=== PATIENT | female | born 1950 | race Caucasian/White ===

== ENCOUNTER → 2017-07-14 | Outpatient (CLI) | payer MEDICARE ==
[2014-11-29 15:27] VITALS: BP 163/75
[~2017-07-14] MED LIST: FAMO-63 PO; FERR-36 PO; IOHEXOL 240 MG/ML 50ML VIAL. PO ONE; IOHEXOL 300 MG/ML 75 ML VIAL IV ONE; METO25TA4 PO; MULT1TAB52 PO; OMEP20CA5 PO; ONDA4TAB7 PO; OXYC-323 PO; PHEN-318 PO; POTA10TA12 PO; TAMS0.4C97 PO; VITA200C PO
[2017-07-14 08:28] LABS: CREATININE 0.8 mg/dL (0.6-1.0); GFR 71.3
--- NOTE | 2017-07-14 10:21 | RAD ---
CT chest and abdomen with contrast 07/14/2017 at 0921 hours Indication: Liver and lung metastasis. History of colon cancer. Comparison: CT chest and abdomen 03/14/2017 Technique: Multiple axial CT images of the chest and abdomen were obtained after the administration of 75 mL Omnipaque 300. Coronal and sagittal reformats are provided. Findings: Chest: Thyroid gland is normal in appearance. Right chest wall infusion port catheter is identified with the distal tip terminating at the cavoatrial junction. Heart size is within normal limits. Thoracic aorta is normal in course and caliber. Scattered atherosclerotic desiccation is present. There is no pericardial or pleural effusion. There is biapical pleural-parenchymal scarring, left greater than right. There is geographic groundglass attenuation in the left upper lobe. Previously seen 11 mm solid noncalcified pulmonary nodule in the left upper lobe is obscured in the region of groundglass attenuation, however appears to measure approximately 7 mm on the current examination (series 3, image 13). Similar appearance of bandlike atelectasis and/or scarring in the anterior left upper lobe (in the region of nodular mass seen on the recent PET). Previously seen area of airspace consolidation in the left lower lobe with air bronchograms measured 4.8 x 3.9 cm. This area currently measures 3.7 x 2.1 cm. However, there is an adjacent noncalcified nodular density measuring 15 x 18 mm (series 3, image 30) as well as a 7 mm noncalcified pulmonary nodule (series 3, image 31), which are new from prior examination. Right lung is clear. Abdomen: Post surgical changes from right hepatectomy are identified. No suspicious masses are identified in the left hepatic lobe. Portal vein appears patent. Spleen, bilateral adrenal glands and pancreas are within normal limits. The gallbladder is surgically absent. Kidneys enhance symmetrically. No hydronephrosis or renal calculi. Stable 8 mm hypodense lesion is identified in the superior pole the left kidney. There is a 15 mm hypodense lesion in the inferior pole the left kidney, stable. The abdominal aorta is normal in course and caliber. There is scattered atherosclerotic calcification. No enlarged lymph nodes are noted within the abdomen. There is no free fluid or free intraperitoneal air. Bowel loops are normal in caliber. Impression: 1. New noncalcified pulmonary nodules in the left lower lobe measuring 15 x 18 mm and 7 mm, as detailed above. Findings are suspicious for progression of pulmonary metastatic disease. 2. There is improved airspace consolidation in the left lower lobe with associated air bronchograms. Findings could represent a pulmonary mass versus resolving infiltrate/inflammatory process. 3. New groundglass attenuation in the left upper lobe is suspicious for new pulmonary infiltrate of infectious/inflammatory etiology. In this region, previously 11 mm solid noncalcified pulmonary nodule now appears to measure approximately 7 mm. 4. No suspicious lesions are identified within the hepatic parenchyma. No lymphadenopathy within the abdomen. PQRS Compliance Statement: One or more of the following individualized dose reduction techniques were utilized for this examination: 1. Automated exposure control 2. Adjustment of the mA and/or kV according to patient size 3. Use of iterative reconstruction technique
== END | disposition home or self-care (01) ==
LOC: CT 07:38
PROVIDERS: ATTEND Radiology Radiation Oncology
DX: C22.0 Liver cell carcinoma (principal); R91.1 Solitary pulmonary nodule; Z85.038 Personal history of other malignant neoplasm of large intestine
CPT/HCPCS: 36415; 71260; 74160; 82565; Q9966; Q9967

== ENCOUNTER → 2017-10-15 | Outpatient (CLI) | payer MEDICARE ==
[2014-11-29 15:27] VITALS: BP 163/75
[~2017-10-15] MED LIST changes: +CONTRAST GIVEN MC PRN; +HEPARIN PF 500 UNIT/5 ML DISP.SYRIN. IV ONE; +IOHEXOL 300 MG/ML 100ML VIAL. IV ONE; -IOHEXOL 300 MG/ML 75 ML VIAL IV ONE
--- NOTE | 2017-10-15 10:30 | RAD ---
CT chest, abdomen and pelvis with contrast 10/15/2017 Clinical indication: Carcinoma of the cecum. Comparison: CT chest, abdomen and pelvis 07/14/2017, CT chest 03/14/2017, PET CT 02/22/2016 Technique: Multiple CT images of the chest, abdomen and pelvis were obtained following the intravenous menstruation of 75 mL Omnipaque 300. PQRS Compliance Statement: One or more of the following individualized dose reduction techniques were utilized for this examination: 1. Automated exposure control 2. Adjustment of the mA and/or kV according to patient size 3. Use of iterative reconstruction technique Findings: Chest: There is a right IJ chest port with distal tip terminating at the superior cavoatrial junction. The thoracic aorta is normal in caliber with mild scattered calcified atheromatous disease. No axillary, mediastinal or hilar lymphadenopathy. The central airways are patent. There cooley been interval increase in lateral left lower lobe nodule measuring 1.0 cm series 2/image 29, previously 0.8 cm when measured in a similar fashion. Interval increase in nodular soft tissue thickening of the left upper lobe adjacent to the nodule which is difficult to measure due to oblique course best appreciated on the coronal series measuring up to 1.4 cm CC series 5/image 26, previously 1.2 cm when measured in similar fashion. There is unchanged mild left fissural thickening adjacent to the soft tissue thickening. Evolution of the consolidation in the apical left upper lobe on series 2/image 11. Unchanged linear consolidation in the anterior left upper lobe series 2/image 17. No significant change additional scattered areas of pleural-parenchymal scarring throughout both lungs. No pleural effusion or pneumothorax. There are no destructive osseous lesions. Abdomen and pelvis: There are postsurgical changes of a right hepatectomy. No discrete soft tissue nodularity at the cut surface of the liver margin. Left lobe of the liver is otherwise unremarkable. Spleen, adrenal glands, pancreas, and kidneys are unremarkable prior from a few left renal hypodensities which are too small to definitively characterize. No hydronephrosis. Abdominal aorta is normal in caliber with mild calcified atheromatous disease. No retroperitoneal or mesenteric lymphadenopathy. Small and large bowel loops are normal in caliber. There are postsurgical changes of a prior partial right hemicolectomy and ileocolic anastomosis. No bowel obstruction. No abdominal free fluid. Mildly distended and unopacified urinary bladder unremarkable. Uterus unremarkable, though incomplete evaluated by CT. No pelvic free fluid. No iliac or inguinal lymphadenopathy. There are no destructive osseous lesions. Impression: Chest: 1. Interval increase in lateral left lower lobe noncalcified nodule and adjacent nodular soft tissue thickening concerning for worsening pulmonary metastatic disease. 2. No thoracic lymphadenopathy. Abdomen and pelvis: 1. Prior partial right hemicolectomy and right hepatectomy without evidence of local recurrence or abdominal pelvic metastatic disease.
== END | disposition home or self-care (01) ==
LOC: CT 08:11
PROVIDERS: ATTEND Internal Medicine Hematology & Oncology
DX: C18.0 Malignant neoplasm of cecum (principal); Z90.49 Acquired absence of other specified parts of digestive tract
CPT/HCPCS: 71260; 74177; Q9966; Q9967

== ENCOUNTER → 2017-11-06 | Outpatient (CLI) | payer MEDICARE ==
[2014-11-29 15:27] VITALS: BP 163/75
[~2017-11-06] MED LIST changes: -CONTRAST GIVEN MC PRN; -HEPARIN PF 500 UNIT/5 ML DISP.SYRIN. IV ONE; -IOHEXOL 240 MG/ML 50ML VIAL. PO ONE; -IOHEXOL 300 MG/ML 100ML VIAL. IV ONE
--- NOTE | 2017-11-06 14:02 | RAD ---
FDG tumor localization scan, PET/CT, 11/06/2017: History: Restaging colon cancer, lung metastases Following IV injection of 13.2 mCi of 18 F-FDG, imaging was performed from the skull base to the proximal thighs. The noncontrast CT component was performed for attenuation correction and anatomic localization purposes rather than for primary diagnosis. The patient's blood glucose level at the time of injection was 92 MG/DL. Comparison is made to a study from 02/22/2016. On the previous study there was a hypermetabolic nodule in the left upper lobe. There is now a larger irregular streaky opacity in the left upper lobe at this level. It demonstrates FDG uptake similar to the mediastinal uptake, with a maximum SUV of 2.3. It contains a small punctate area of increased density compatible with a calcification. The appearance suggests scarring and/or postradiation change related to a treated malignancy. Residual tumor cannot be excluded. There is a new irregular mass in the anterior aspect of the left lower lobe along the inferior lateral aspect of the left hilum. This process measures approximately 4 cm in diameter. It contains a calcification. It is hypermetabolic with a maximum SUV of 6.1. Malignancy is suspected. There is new streaky increased density in the medial aspect of the left upper lobe extending into the apex. It contains air bronchograms. This area demonstrates increased FDG uptake with a maximum SUV of 3.7. There was a nodule in this region on a CT study of 03/14/2017. The current findings may represent post radiation change. Residual tumor cannot be excluded. No other abnormal FDG uptake is seen in the chest. Physiologic activity is evident in the neck. Normal GI tract and urinary tract activity is present in the abdomen and pelvis. No hypermetabolic abdominal process is seen. Incidental CT findings include the presence of a Port-A-Cath extending to the atriocaval junction. There are coarse calcifications in the right upper quadrant along the surface of the liver, probably on a postsurgical basis. There are surgical sutures in the ascending colon region. Sigmoid diverticula are noted. IMPRESSION: 1. Extensive FDG uptake in an irregular spiculated density in the left lower lobe compatible with a lung metastasis or a primary neoplasm. 2. A streaky density in the medial aspect of the left upper lobe extending into the apex demonstrates mildly increased FDG uptake. This probably represents a treated metastasis. 3. Low level FDG uptake is present related to an additional irregular left upper lobe opacity, also probably representing a treated metastasis. 4. Correlation with the precise radiation therapy history is suggested.
== END | disposition home or self-care (01) ==
LOC: PETSC 10:20
PROVIDERS: ATTEND Radiology Radiation Oncology
DX: C78.00 Secondary malignant neoplasm of unspecified lung (principal); K57.30 Diverticulosis of large intestine without perforation or abscess without bleeding
CPT/HCPCS: 78815; A9552

== ENCOUNTER → 2018-02-25 | Outpatient (CLI) | payer MEDICARE ==
[~2018-02-25] MED LIST changes: +CONTRAST GIVEN MC; -FAMO-63 PO; -FERR-36 PO; -METO25TA4 PO; -MULT1TAB52 PO; -OMEP20CA5 PO; -ONDA4TAB7 PO; -OXYC-323 PO; -PHEN-318 PO; -POTA10TA12 PO; -TAMS0.4C97 PO; -VITA200C PO
[2018-02-25] MEDS: IOHEXOL 240 MG/ML 50ML VIAL. PO (09:06)
[2018-02-25] MEDS: HEPARIN PF 500 UNIT/5 ML DISP.SYRIN. IV (09:06)
[2018-02-25] MEDS: IOHEXOL 300 MG/ML 100ML VIAL. IV (09:06)
== END | disposition home or self-care (01) ==
LOC: CT 07:51
DX: C18.0 Malignant neoplasm of cecum (principal); K57.30 Diverticulosis of large intestine without perforation or abscess without bleeding; J98.11 Atelectasis; I70.0 Atherosclerosis of aorta; R91.8 Other nonspecific abnormal finding of lung field; Z90.49 Acquired absence of other specified parts of digestive tract
CPT/HCPCS: 71260; 74177; Q9966; Q9967

== ENCOUNTER 2019-07-14 12:52 | Emergency (ER) | payer MEDICARE ==
[~2019-07-14] VITALS: Ht 167.6 cm; Wt 63.5 kg
[~2019-07-14 12:52] MED LIST changes: -CONTRAST GIVEN MC; +FAMO-63 PO; +FERR-36 PO; +METO25TA4 PO; +MULT1TAB52 PO; +OMEP20CA5 PO; +ONDA4TAB7 PO; +OXYC1TAB15 PO; +PHEN-318 PO; +POTA10TA12 PO; +TAMS0.4C97 PO; +VITA200C PO
[2019-07-14] MEDS ORDERED: SODIUM PHOSPHATES 19/7GM 133 ML ENEMA. PR ONE (14:15)
--- NOTE | 2019-07-14 14:28 | PHYS DOC ---
Past Medical History Past Medical History: Anemia, Cancer, GERD, Other Additional Past Medical Histor: colon cancer Past Surgical History: Cancer Surgery, Cholecystectomy, Other Additional Past Surgical Histo: colon surgery Alcohol Use: None Drug Use: None Adult General Chief Complaint Chief Complaint: CONSTIPATION HPI HPI Patient is a 69-year-old female who presents to the emergency department for evaluation. She states that she has not had a good bowel movement in about the past 3-4 days. She did try to manually disimpact herself and remove a small amount stool 2 days ago, but has not had any other bowel movements. She has not had any bloody stools, nausea, vomiting, or abdominal pain, other than the pressure in her rectal area. She does have a history of colon cancer, which has metastasized to the liver and lung, but she has not had any chemotherapy treatment in several months. She has no other complaints at this time. Denies chest pain, shortness of breath, dizziness, lightheadedness, numbness, or focal weakness. There are no other alleviating or exacerbating factors to her symptoms. Review of Systems Review of Systems Constitutional: Denies fever or chills [] Eyes: Denies change in visual acuity, redness, or eye pain [] HENT: Denies nasal congestion or sore throat [] Respiratory: Denies cough or shortness of breath [] Cardiovascular:The patient denies any shortness of breath, chest pain, palpitations, or orthopnea[] GI: Denies abdominal pain, nausea, vomiting, bloody stools or diarrhea [] : Denies dysuria or hematuria [] Musculoskeletal: Denies back pain or joint pain [] Integument: Denies rash or skin lesions [] Neurologic: Denies headache, focal weakness or sensory changes [] Endocrine: Denies polyuria or polydipsia [] All other systems were reviewed and found to be within normal limits, except as documented in this note. Current Medications Current Medications Current Medications Medications (Trade) Dose Ordered Sig/Elie Start Time Stop Time Status Last Admin Dose Admin Sodium Monofluorophosphate (Fleet Adult) 133 ml 1X ONCE 07/14/19 14:15 07/14/19 14:19 DC 07/14/19 15:25 133 ML Allergies Allergies Allergies Coded Allergies Type Severity Reaction Last Updated Verified Sulfa (Sulfonamide Antibiotics) Allergy Intermediate Swelling 11/29/14 Yes ciprofloxacin Allergy Intermediate Rash 11/28/14 Yes Physical Exam Physical Exam PHYSICAL EXAM: CONSTITUTIONAL: Well developed, well nourished HEAD: normocephalic, atraumatic EENT: PERRL, EOMI. Conjunctivae normal color, sclerae non-icteric; moist mucous membranes. NECK: Supple, non-tender; no meningismus. LUNGS: Lungs CTA, breathing even and unlabored. Normal air movement. HEART: Regular rate and rhythm, no murmur CHEST: No deformity; non-tender ABDOMEN: The abdomen is soft, and non-tender, no masses or bruits. Normal bowel sounds are present. EXTREM: Normal ROM; no deformity, no calf tenderness. Normal pulses palpable in all extremities. There is no pedal edema. SKIN: No rash; no diaphoresis NEURO: Alert; normal speech and cognition; CN's grossly intact; strength grossly intact without focal deficit. BACK: No CVA TTP. RECTAL EXAM: There is a moderate amount of somewhat soft stool at the upper aspect of the rectum, unable to be manually removed. There is no other fecal impaction present. Exam was performed in the presence of the patient's nurseMelissa. Current Patient Data Vital Signs Vital Signs Date Time Temp Pulse Resp B/P (MAP) Pulse Ox O2 Delivery O2 Flow Rate FiO2 07/14/19 13:00 97.7 56 16 96/51 (66) 97 Room Air 97.7 EKG EKG [] Radiology/Procedures Radiology/Procedures [PROCEDURE: ACUTE ABDOMEN SERIES 2 view abdominal series and PA view chest x-ray Clinical indications: Constipation. FINDINGS: There is moderate fecal retention throughout the colon and rectosigmoid region. No dilatation of large or small bowel is evident. No free air or air-fluid levels are seen. Chest x-ray is compared to a prior tromper view from a chest CT dated February 25, 2018. Previous chest x-ray was dated October 25, 2014. Again seen is a left midlung zone mass with fiducial markers which was seen on the previous chest CT in 2018. Again seen is chronic linear scarring or atelectasis within the left apex and chronic left apical pleural thickening. There is volume loss on the left side with shift of the heart and mediastinum towards the left chest. There is elevation of the left hemidiaphragm as well. There is a small left-sided pleural effusion and small right-sided pleural effusion. No pneumothorax is evident. Heart size and mediastinum are unremarkable. A right IJ Port-A-Cath is in place and the tip is seen within the lower SVC above the level of the right atrium. IMPRESSION: Moderate fecal retention. No obstructive bowel pattern. Lung mass on the left side. There does appear to be an increase in volume loss on the left side in comparison to the prior chest CT dated February 25, 2018. This could be due to progressive narrowing of left sided bronchi or mucous plug. Small bilateral pleural effusions. ] Course & Med Decision Making Course & Med Decision Making Pertinent Imaging studies reviewed. (See chart for details) []4:30 PM: The patient is feeling significantly better, she received an enema, had a small bowel movement, and then did have some manual disimpaction, which significantly improved her symptoms. She is feeling much better at this time. I discussed the use of MiraLAX daily, the need for close PCP follow-up for further outpatient evaluation, the patient and her spouse were aware of the chest findi ngs on the x-ray, and return precautions and the need for daily bowel regimen which discussed in detail. Dragon Disclaimer Dragon Disclaimer This electronic medical record was generated, in whole or in part, using a voice recognition dictation system. Departure Departure Impression: Primary Impression: Constipation Disposition: 01 HOME, SELF-CARE Condition: IMPROVED Referrals: CHIARA MANSFIELD MD (PCP) Patient Instructions: Constipation, Adult AZAR LIVINGSTON MD Jul 14, 2019 14:28
--- NOTE | 2019-07-14 14:58 | RAD ---
2 view abdominal series and PA view chest x-ray Clinical indications: Constipation. FINDINGS: There is moderate fecal retention throughout the colon and rectosigmoid region. No dilatation of large or small bowel is evident. No free air or air-fluid levels are seen. Chest x-ray is compared to a prior dish up person view from a chest CT dated February 25, 2018. Previous chest x-ray was dated October 25, 2014. Again seen is a left midlung zone mass with fiducial markers which was seen on the previous chest CT in 2018. Again seen is chronic linear scarring or atelectasis within the left apex and chronic left apical pleural thickening. There is volume loss on the left side with shift of the heart and mediastinum towards the left chest. There is elevation of the left hemidiaphragm as well. There is a small left-sided pleural effusion and small right-sided pleural effusion. No pneumothorax is evident. Heart size and mediastinum are unremarkable. A right IJ Port-A-Cath is in place and the tip is seen within the lower SVC above the level of the right atrium. IMPRESSION: Moderate fecal retention. No obstructive bowel pattern. Lung mass on the left side. There does appear to be an increase in volume loss on the left side in comparison to the prior chest CT dated February 25, 2018. This could be due to progressive narrowing of left sided bronchi or mucous plug. Small bilateral pleural effusions. Electronically signed by: Gagandeep Lopez MD (07/14/2019 2:55 PM) [facility]
[2019-07-14 16:52] VITALS: BP 107/52
== END 2019-07-14 17:00 | disposition home or self-care (01) ==
LOC: ER 12:52
DX: K59.00 Constipation, unspecified (principal); K21.9 Gastro-esophageal reflux disease without esophagitis; Z90.49 Acquired absence of other specified parts of digestive tract; Z98.890 Other specified postprocedural states; Z88.1 Allergy status to other antibiotic agents; Z88.2 Allergy status to sulfonamides
CPT/HCPCS: 74022; 99284